=== PATIENT | female | born 1950 | race Caucasian/White ===

== ENCOUNTER → 2020-02-10 | Emergency (ER) | payer OTHER ==
[~2020-02-10] VITALS: Ht 157.5 cm; Wt 85.3 kg
[2020-02-10 16:14] VITALS: BP_SYST 154
--- NOTE | 2020-02-10 16:22 | NUR ---
Patient triaged and placed in waiting room. VSS and patient appears in no acute distress at this time. Awaiting available bed, and MD notified of need for MSE.
== END | disposition still patient (30) ==
LOC: SED 15:46
DX: H57.89 Other specified disorders of eye and adnexa (principal); Z53.21 Procedure and treatment not carried out due to patient leaving prior to being seen by health care provider

== ENCOUNTER 2020-06-03 09:32 | Emergency (ER) | payer OTHER ==
[~2020-06-03] VITALS: Ht 157.5 cm; Wt 108.9 kg
[2020-06-03 09:42] VITALS: BP_SYST 178
--- NOTE | 2020-06-03 09:45 | NUR ---
Patient to ER bed 06 to gown for evaluation. Side rails up.
--- NOTE | 2020-06-03 09:46 | NUR ---
Patient arrived in the ED c/o left lower leg wound after her cat scratched it. Denied any chest pain or shortness of breath. Denied any fevers, chills, nausea or vomiting. Patient is alert and oriented x4, respirations even and unlabored, speaking in full sentences, and ambulating with a steady gait. VSS, pain level 5/10. Informed of the approximate wait time. Instructed to notify ED staff for any changes in condition or worsening of symptoms while waiting to be seen by an ED provider. Patient verbalized understanding.
--- NOTE | 2020-06-03 09:47 | NUR ---
ER Dr. Alexis at bedside examining patient.
[2020-06-03] MEDS ORDERED: DIPH-TET-PERTUS Vaccine 0.5 ML VIAL (ADACEL) I.M. ONE (10:00)
--- NOTE | 2020-06-03 10:08 | NUR ---
Administered Tdap IM as ordered by Dr. Alexis. Patient tolerated the medications well. See eMAR for details.
[2020-06-03 10:12] VITALS: BP_SYST 178
--- NOTE | 2020-06-03 10:12 | NUR ---
ER discussed with the patient the results and treatment provided. Patient given written and verbal discharge instructions and verbalized understanding. Opportunity for questions provided and answered. Patient in stable condition, last set of vital signs within normal limits, pain scale 0/10, speaking in full sentences and ambulated with a steady gait upon discharge. ID arm band removed. Rx of Augmentin given. Patient educated on pain management and to follow up with PMD. Medication side effect fact sheet provided.
== END 2020-06-03 10:12 | disposition home or self-care (01) ==
LOC: SED 09:32
DX: S80.812A Abrasion, left lower leg, initial encounter (principal); L03.116 Cellulitis of left lower limb; W55.03XA Scratched by cat, initial encounter; Y93.89 Activity, other specified; Y92.89 Other specified places as the place of occurrence of the external cause; Y99.8 Other external cause status
CPT/HCPCS: 90715; 99283